=== PATIENT | male | born 1960 | race Caucasian/White ===

== ENCOUNTER 2018-12-11 19:14 | Emergency (ER) | payer OTHER ==
[~2018-12-11] VITALS: Ht 165.1 cm; Wt 96.0 kg
[2018-12-11 19:36] VITALS: Ht 165.1 cm; Wt 96.0 kg
--- NOTE | 2018-12-11 22:29 | ERD ---
ER Documentation Chief Complaint Chief Complaint R leg pain/swelling/discoloration X 3 days, Hx blood clots HPI This is a 58-year-old male with a past medical history of hypertension, chronic venous insufficiency with bilateral lower extremity edema, previous superficial blood clot for which he takes Coumadin daily, now presenting with 3 days of reported increased right lower extremity swelling, pain and slight discoloration of his skin. The patient does not endorse any exacerbating or alleviating factors. The symptoms have been progressive in nature. The patient denies feeling sick recently. The patient denies fever or chills. The patient has had no headache or vision changes. The patient does not endorse neck or back pain. The patient denies lightheadedness or dizziness. The patient has had no chest pain or trouble breathing. The patient denies nausea or vomiting. The patient denies abdominal pain. The patient denies changes to bowel movements or urination. The patient has had no focal deficits. The patient has had no weakness or numbness or tingling to the face or extremities. ROS All systems reviewed and are negative except as per history of present illness. PMhx/Soc History of Surgery: No Anesthesia Reaction: No Hx Neurological Disorder: No Hx Respiratory Disorders: No Hx Cardiac Disorders: Yes (Hypertension, previous superficial venous thrombosis) Hx Psychiatric Problems: No Hx Miscellaneous Medical Probl: No Hx Alcohol Use: No Hx Substance Use: No Hx Tobacco Use: No Smoking Status: Never smoker FmHx Family History: No diabetes Physical Exam Vitals Vital Signs Date Temp Pulse Resp B/P (MAP) Pulse Ox O2 O2 Flow FiO2 Time Delivery Rate 12/11/18 98.9 89 16 140/79 100 Room Air 22:46 (99) 12/11/18 98.3 90 18 143/77 99 Room Air 20:30 (99) 12/11/18 99.5 80 18 175/109 97 19:36 (131) Physical Exam Const: No apparent distress, well-developed, well-nourished Head: Normocephalic, Atraumatic Eyes: Normal Conjunctiva. Extraocular movements intact. Pupils equal, round and reactive to light ENT: Normal External Ears, Nose and Mouth. Neck: Full range of motion. No meningismus. Resp: Clear to auscultation bilaterally, No wheezes, rales or rhonchi Cardio: Regular rate and rhythm. No murmurs, rubs or gallops Abd: Soft, non tender, non distended. Normal bowel sounds Skin: No petechiae or rashes Back: No midline tenderness. No CVA tenderness Ext: No cyanosis. 2+ pitting bilateral lower extremity edema, right slightly greater than left with mild skin discoloration. Neur: Awake and alert, oriented 4. Cranial nerves intact. No facial droop. Normal strength, sensation and coordination. Psych: Normal Mood and Affect Procedures/MDM MDM The patient's presentation warrants further investigation. Previous medical records, if available, were reviewed. IMAGING Imaging and Radiology interpretation reviewed. Doppler right lower extremity FINDINGS: There is normal compressibility and flow within the right common femoral, femoral, posterior tibial, peroneal and popliteal veins. IMPRESSION: No sonographic evidence for deep venous thrombosis. Electronically viewed and signed by .Shakir Keyes MD, MD on 12/11/2018 20:38 TREATMENT/DISPOSITION The patient presents for reported increased swelling of the right lower extremity. I do have high suspicion for venous insufficiency and stasis dermatitis. On exam, the difference in swelling between the right and left leg is marginal. The patient has chronic lower extremity edema, likely from venous insufficiency. There is no evidence of heart failure on exam. The patient does not have a history of liver or kidney disease. The patient is actively on Coumadin and the patient's DVT study is negative. I do have low suspicion for DVT today. The patient may follow-up with his primary care physician in an outpatient setting. No emergent diagnoses were identified. At this time, I feel that the patient stable for discharge. The patient was instructed to follow-up with a primary care physician in 1-3 days. The patient will be given strict precautions with which to return to the emergency department. Prescriptions: None The patient's blood pressure was elevated at greater than 120/80 while in the emergency department. The patient was otherwise stable with no evidence of hypertensive urgency or emergency. The patient does not require admission for blood pressure control. I have discussed with the patient the risks of hypertension. I have instructed the patient to return to the ER for any new or worsening symptoms including chest pain, shortness of breath, headache, blurred vision, confusion, nausea, vomiting or LOC. I have advised the patient to follow up with the primary care physician for outpatient monitoring and treatment for hypertension in 1-3 days. Disclaimer: Inadvertent spelling and grammatical errors are likely due to EHR/dictation software use and do not reflect on the overall quality of patient care. Note that the electronic time recorded on this note does not necessarily reflect the actual time of the patient encounter. Departure Diagnosis: Primary Impression: Bilateral lower extremity edema Additional Impression: Stasis dermatitis of both legs Condition: MOISÉS Lorenzo MD Dec 11, 2018 22:29
[2018-12-11 22:46] VITALS: BP 140/79; PULSE 89; RESP 16
== END 2018-12-11 22:54 | disposition home or self-care (01) ==
LOC: E/R 19:14
DX: I87.2 Venous insufficiency (chronic) (peripheral) (principal); I10 Essential (primary) hypertension; R60.0 Localized edema; Z79.01 Long term (current) use of anticoagulants
CPT/HCPCS: 93971